=== PATIENT | female | born 1955 | race Caucasian/White ===

== ENCOUNTER → 2017-07-11 | Outpatient (CLI) | payer OTHER ==
--- NOTE | 2017-07-11 13:18 | CTL ---
EXAMINATION TYPE: CT Low Dose Lung DATE OF EXAM ORDERED: 07/11/2017 COMPARISON: None HISTORY: . Low Dose CT Lung Screening CT DLP: 65.[address] CTDI: 2.0 mGy IV CONTRAST USED: None. SCREENING VISIT: First visit COMPARISON: None. TECHNIQUE: Low dose computed tomography scan was performed through the chest at 1 millimeter thick se ctions and reconstructed images in the coronal plane at [address] DIAGNOSTIC QUALITY: Satisfactory FINDINGS: LUNG NODULES: Right lung: There is right apical soft tissue with surrounding strandy attenuation which is felt to r eflect parenchymal scar and measures 2.1 x 1.5 cm. There is a right upper lobe pleural-based nodulari ty as well as associated mild bronchiectasis and underlying emphysematous change. Calcified granuloma right upper lobe. Left lung: Left lower lobe calcified granuloma. No additional nodules seen. LUNGS: COPD: Severity: Mild Fibrosis: Severity: Minimal right apical Lymph nodes: None Other findings: None RIGHT PLEURAL SPACE: Effusion: None Calcification: None Thickening: None Pneumothorax: None LEFT PLEURAL SPACE: Effusion: None Calcification: None Thickening: None Pneumothorax: None HEART: Heart Size: Mildly enlarged Coronary calcification: Mild Pericardial effusion: None OTHER FINDINGS: Upper abdomen: No significant abnormality Bony thorax: Degenerative changes Supraclavicular region: No significant abnormalityOther: No significant abnormalityI IMPRESSION: Benign FOLLOW UP CT CHEST RECOMMENDATION: Follow-up study in 6 months. Comparison any prior outside studies would be of value. CT LUNG RAD: Benign category 3 LUNG RAD CATEGORY 3
== END | disposition home or self-care (01) ==
LOC: RADCTMAIN 11:37
PROVIDERS: ATTEND Family Medicine
DX: Z12.2 Encounter for screening for malignant neoplasm of respiratory organs (principal); Z87.891 Personal history of nicotine dependence

== ENCOUNTER → 2018-06-11 | Outpatient (CLI) | payer OTHER ==
--- NOTE | 2018-06-11 14:02 | ECHOS ---
STRESS ECHOCARDIOGRAM INDICATIONS: Shortness of breath. BASELINE HEART RATE: 74 BASELINE BLOOD PRESSURE: 149/63 MAXIMUM HEART RATE: 157 MAXIMUM BLOOD PRESSURE: 176/94 85% MPHR: 135 100% MPHR: 159 METS: 6.9 MAXIMUM STAGE REACHED: II TOTAL EXERCISE TIME: 6:01 CLINICAL INFORMATION: Baseline rhythm is sinus mechanism, rate is 74, normal axis and intervals, normal electrocardiogram. Baseline blood pressure 149/63 mmHg. Patient exercised on Tyree protocol for 6 minutes 1 second reaching peak rate 157 beats per minute which is equal to 98% maximum predicted heart rate. Peak blood pressure 176/94 mmHg. Test was terminated due to fatigue. There was no chest pain. Electrocardiograph monitoring revealed rare PVCs. There was no evidence of diagnostic ischemic ST deviation. FINDINGS: Baseline echocardiogram revealed normal function at peak exercise. There was normal wall motion augmentation with no hypokinesis or dyskinesis. CONCLUSION: 1. Average exercise tolerance with normal electrocardiographic response to exercise. 2. Normal stress echocardiogram with no evidence of stress-induced ischemia. MMODL / IJN: [id number] /
== END | disposition home or self-care (01) ==
LOC: RADNMMAIN 08:55
PROVIDERS: ATTEND Family Medicine
DX: R06.00 Dyspnea, unspecified (principal)
CPT/HCPCS: 93351

== ENCOUNTER → 2018-06-19 | Outpatient (CLI) | payer OTHER ==
--- NOTE | 2018-06-21 11:46 | MM ---
Reason for exam: screening (asymptomatic). Last mammogram was performed 8 years and 4 months ago. History: Saline implants in both breasts, 2007. Physical Findings: A clinical breast exam by your physician is recommended on an annual basis and results should be correlated with mammographic findings. MG 3D Screen Mammo Imp/Cad Bilateral CC, MLO, and ID view(s) were taken. Prior study comparison: February 14, 2010, mammogram, performed at [facility]. July 22, 2008, mammogram, performed at [facility]. The breast tissue is heterogeneously dense. This may lower the sensitivity of mammography. There is chronic nodularity in the right breast. Bilateral prothesis. No significant changes when compared with prior studies. ASSESSMENT: Benign, BI-RAD 2 RECOMMENDATION: Routine screening mammogram of both breasts in 1 year.
== END | disposition home or self-care (01) ==
LOC: RADMAMWWP 10:12
PROVIDERS: ATTEND Family Medicine
DX: Z12.31 Encounter for screening mammogram for malignant neoplasm of breast (principal)
CPT/HCPCS: 77063; 77067

== ENCOUNTER → 2019-07-10 | Outpatient (CLI) | payer OTHER | END | disposition home or self-care (01) | LOC: RADECHMAIN 11:20 | PROVIDERS: ATTEND Family Medicine | DX: Z53.9 Procedure and treatment not carried out, unspecified reason (principal) ==

== ENCOUNTER → 2021-12-09 | Outpatient (CLI) | payer OTHER ==
--- NOTE | 2021-12-09 11:16 | CT ---
EXAMINATION TYPE: CT chest w con DATE OF EXAM: 12/09/2021 COMPARISON: CT dated 07/11/2017 HISTORY: Lung mass CT DLP: 555 mGycm Automated exposure control for dose reduction was used. TECHNIQUE: Multiplanar CT scan of the chest is performed with IV Contrast, patient injected with 100 ml mL of Is ovue 300. FINDINGS: Interval stability of the previously seen right apical thick scar tissue, adjacent fibrotic changes, traction bronchiectasis and minimal groundglass opacity with mild paraseptal emphysema, unchanged sin ce 2017 CT scan. Stable 4 mm nodule along the anterior aspect of the right upper lobe adjacent to the oblique fissure. Other scattered smaller bilateral calcified and noncalcified nodules, all stable compared to the prev ious CT scan. Right upper/middle lobe and medial linear pulmonary atelectasis. Minimal paraseptal emp hysema is seen in the left lung apex. Unremarkable lungs otherwise. Patent central airways. The pleur al or pericardial effusion. Increased cardiac size, please correlate with echocardiographic results. The pulmonary trunk measures 3 cm. Bovine aortic arch. No pathologically enlarged lymph nodes in the chest. Bilateral breast pros thesis. Triangular peripheral hypodense area seen in segment 4A/8 of the liver measuring 2.8 x 3.1 cm , incompletely characterized and could represent focal area of fatty infiltration. Recommend correlat ion with ultrasound results. Stable bilateral adrenal nodules measuring up to 2.8 cm on the right side and 2.1 cm on the left side , likely representing adrenal adenomas. Chronic healed fractures of the posterior aspects of the left sixth, eighth and ninth ribs. Degenerative changes of the thoracic spine. Retrolisthesis of T11 over T12, likely degenerative. IMPRESSION: 1. Stable scarring and chronic changes in the right lung apex as described above. The other previousl y described pulmonary nodules are also stable. No new suspicious or progressive lung lesion. 2. Hypodense area at the anterior aspect of the liver as described above, incompletely characterized and could represent focal area of fat infiltration, for further ultrasound assessment. Other incident al findings as described above. It is noted that the last lung screening CT was done in 2017. Should the patient return to lung scree karen CT scan every 12 months?.
== END | disposition home or self-care (01) ==
LOC: RADCTMAIN 07:59
PROVIDERS: ATTEND Family Medicine
DX: R91.8 Other nonspecific abnormal finding of lung field (principal)
CPT/HCPCS: 71260; Q9967

== ENCOUNTER → 2022-01-12 | Outpatient (CLI) | payer OTHER ==
--- NOTE | 2022-01-13 09:39 | MM ---
Reason for exam: screening (asymptomatic). Last mammogram was performed 3 years and 7 months ago. History: Saline implants in both breasts, 2007. Physical Findings: A clinical breast exam by your physician is recommended on an annual basis and results should be correlated with mammographic findings. MG Screening Mammo Implant/CAD Bilateral CC, MLO, and ID view(s) were taken. Prior study comparison: June 19, 2018, bilateral MG 3d screen mammo imp/cad. The breast tissue is heterogeneously dense. This may lower the sensitivity of mammography. There is chronic nodularity in the right breast. Bilateral retropectoral saline implants. No significant changes when compared with prior studies. ASSESSMENT: Benign, BI-RAD 2 RECOMMENDATION: Routine screening mammogram of both breasts in 1 year.
== END | disposition home or self-care (01) ==
LOC: RADMAMWWP 08:49
PROVIDERS: ATTEND Family Medicine
DX: Z12.31 Encounter for screening mammogram for malignant neoplasm of breast (principal)
CPT/HCPCS: 77067

== ENCOUNTER → 2022-02-28 | Outpatient (CLI) | payer OTHER ==
--- NOTE | 2022-02-28 16:59 | BD ---
EXAMINATION TYPE: Axial Bone Density DATE OF EXAM: 02/28/2022 COMPARISON: NONE CLINICAL HISTORY: 66 years year old Female. ICD-10 CODE: M89.9 Disorder of bone Nuclear Medicine Study in the last 2 weeks: Barium Study in the last week: : Height: Weight: FRAX RISK QUESTIONS: Alcohol (3 or more units per day): NO Family History (Parent hip fracture): NO Glucocorticoids (More than 3mos): NO History of Fracture in Adulthood: YES Secondary Osteoporosis: 1. Type 1 Diabetes: NO 2. Hyperthyroidism: NO 3. Menopause before 45: NO 4. Malnutrition: NO 5. Chronic liver disease: NO Rheumatoid Arthritis: NO Current Tobacco Use: YES RISK FACTORS HISTORY OF: Hip Fracture (Right/Left): NO Spine Fracture: YES When: 2004 History of Wrist Fracture: NO Surgery to Spine/Hip(right/left)/Wrist (right/left): NO Family History of Osteoporosis: NO Active: YES Diet low in dairy products/other sources of calcium: YES Postmenopausal woman: YES Take estrogen and/or progesterone medications: NO Lost more than 2 inches in height since high school: NO Frequent falls: NO Poor Health: NO Hyperparathyroidism: NO Adrenal Insufficiency: NO MEDICATIONS: Prednisone or other steroids: NO Thyroid Medications: NO Osteoporosis Medications: NO Additional Medications: VITD, CALCIUM, MAGNESIUM, ZINC Additional History: EXAM MEASUREMENTS: Bone mineral density about the R hip (g/cm2): 0.876 Bone mineral density about the L hip (g/cm2): 0.851 T Score values are as follows: -----R Neck: -1.2 -----L Neck: -1.3 -----R Total: -0.8 -----L Total: -1.0 BASELINE STUDY FRAX%s: The graph provided illustrates a 14.7% chance for a major osteoporotic fx and a 2.5% chance f or the hips probability for fx in 10 years time. IMPRESSION: Osteopenia (T Score between -2.5 and -1). There is slightly increased risk of fracture and the patient may be considered for treatment. Re-Screen 2-5 years. NOTE: T-SCORE=SD OF THE YOUNG ADULT MEAN.
== END | disposition home or self-care (01) ==
LOC: RADBDWWP 09:54
PROVIDERS: ATTEND Family Medicine
DX: M85.89 Other specified disorders of bone density and structure, multiple sites (principal); Z78.0 Asymptomatic menopausal state
CPT/HCPCS: 77080

== ENCOUNTER → 2024-04-14 | Outpatient (CLI) | payer OTHER ==
--- NOTE | 2024-04-16 08:26 | MM ---
Reason for Exam: Screening (asymptomatic). Last mammogram was performed 2 year(s) and 4 month(s) ago. Patient History: Menarche at age 16. First Full-Term at age 18. Left ovary removed at age 48. Right ovary removed at age 48. Hysterectomy at age 48. Postmenopausal. 2008, Bilateral Implants. Risk Values: Marie 5 year model risk: 1.1%. NCI Lifetime model risk: 3.8%. Prior Study Comparison: 02/14/2010 Screening Mammogram, [facility]. 06/19/2018 Bilateral Screening Mammogram, [facility]. 01/12/2022 Bilateral Screening Mammogram, [facility]. Tissue Density: The breasts are heterogeneously dense, which may obscure small masses. Findings: Analyzed By CAD. There is no suspicious group of microcalcifications or new suspicious mass in either breast. Bilateral breast implant surgery. There is a well-circumscribed nodule in the upper outer margin of the right breast. Stable from multiple prior exams. Overall Assessment: Benign, BI-RAD 2 Management: Screening Mammogram of both breasts in 1 year. . Patient should continue monthly self-breast exams. A clinical breast exam by your physician is recommended on an annual basis. This exam should not preclude additional follow-up of suspicious palpable abnormalities. Note on Marie scores and lifetime risk: 1. A Marie score greater than 3% is considered moderate risk. If this is the case, consider specialist referral to assess eligibility for a risk reducing agent. 2. If overall lifetime risk for the development of breast cancer is 20% or higher, the patient may qualify for future screening with alternating mammogram and breast MRI. Electronically signed and approved by: Raghav Carr M.D. Radiologis
== END | disposition home or self-care (01) ==
LOC: RADMAMWWP 07:33
PROVIDERS: ATTEND Family Medicine
DX: Z12.31 Encounter for screening mammogram for malignant neoplasm of breast (principal); R92.8 Other abnormal and inconclusive findings on diagnostic imaging of breast; Z78.0 Asymptomatic menopausal state
CPT/HCPCS: 77063; 77067

== ENCOUNTER → 2024-04-14 | Outpatient (CLI) | payer OTHER ==
--- NOTE | 2024-04-14 12:28 | US ---
EXAMINATION TYPE: US abdomen complete DATE OF EXAM: 04/14/2024 COMPARISON: CT CLINICAL INDICATION: Female, 68 years old with history of R10.10 ABDOMINAL PAIN; Pain, abnormal CT TECHNIQUE: Multiple sonographic images of the abdomen are obtained. FINDINGS: EXAM MEASUREMENTS: Liver Length: 14.1 cm Gallbladder Wall: 0.3 cm CBD: 0.3 cm Spleen: 9.1 cm Right Kidney: 11.0 x 4.7 x 5.1 cm Left Kidney: 11.1 x 5.9 x 5.4 cm UNDERCOVER COP NOTES: Pancreas: wnl Liver: Hypoechoic area anterior/superior midline lobe near GB= 2.2 x 1.3 x 2.3 cm- difficult to shaneka acterize due to location ?same area seen on prior CT Gallbladder: wnl Evidence for sonographic Zimmerman's sign: No CBD: wnl Spleen: Difficult to visualize due to overlying bowel content Right Kidney: wnl Left Kidney: No evidence of hydro, difficult to visualize due to overlying bowel content Upper IVC: wnl Abd Aorta: wnl IMPRESSION: 1. Indeterminate area within the liver which should be further evaluated with MRI liver mass protoco l with IV contrast. There was an area which was wedge-shaped on CT imaging set 12/09/2021 which could represent focal fatty infiltration on that exam. 2. No evidence for acute process otherwise.
== END | disposition home or self-care (01) ==
LOC: RADUSWWP 07:37
PROVIDERS: ATTEND Family Medicine
DX: R10.10 Upper abdominal pain, unspecified (principal)
CPT/HCPCS: 76700

== ENCOUNTER → 2024-04-29 | Outpatient (CLI) | payer OTHER ==
--- NOTE | 2024-04-29 15:40 | NM ---
EXAMINATION TYPE: NM hepatobiliary w CCK DATE OF EXAM: 04/29/2024 COMPARISON: NONE CLINICAL INDICATION: Female, 68 years old with history of R10.10 UPPER ABDOMINAL PAIN, UNSPECIFIED; TECHNIQUE: After the intravenous administration of 3.26 mCi Tc 99m Mebrofenin hepatobiliary scintigra phy is performed. Immediate images post injection. FINDINGS: There is satisfactory initial accumulation of tracer by the liver. The gallbladder is visualized wit hin 5 minutes. The small bowel activity is noted within 5 minutes. At one hour CCK was administered , patient was injected with 1.5 mcg of Kinevac, and gallbladder ejection fraction is calculated at 69 %, in the normal range. Therefore there is no scintigraphic evidence of cystic or common bile duct obstruction to suggest acute cholecystitis or gallbladder dyskinesia. IMPRESSION: Exam is within normal limits.
== END | disposition home or self-care (01) ==
LOC: RADNMMAIN 12:44
PROVIDERS: ATTEND Family Medicine
DX: R10.10 Upper abdominal pain, unspecified (principal)
CPT/HCPCS: 78227; A9537; J2805

== ENCOUNTER → 2024-05-10 | Outpatient (CLI) | payer OTHER ==
--- NOTE | 2024-05-11 14:51 | MR ---
EXAMINATION TYPE: MR abdomen wo/w con DATE OF EXAM: 05/10/2024 8:35 AM CLINICAL INDICATION:Female, 68 years old with history of D37.6 HEPATIC NEOPLASM UNCERTAIN BEHAVIOR; P HH, Abdomen pain, Abnormal CT chest/US COMPARISON: Ultrasound 04/14/2024, CT 12/09/2021 TECHNIQUE: Multiplanar multi-sequence imaging was performed without contrast. Post contrast imaging was performed. Post IV contrast subtraction images were also submitted for review. IV Contrast: 7 cc Gadavist FINDINGS: LOWER CHEST: Bilateral breast implants appear intact. ABDOMEN Liver: No evidence for hepatic steatosis or cirrhosis. High T2 cystic area with thin septation measur ing 21 x 19 mm which does not demonstrate postcontrast enhancement. Gallbladder and Bile ducts: No evidence for ductal dilation, or biliary stricture or evidence of chol edocholithiasis. The gallbladder is within normal limits. Pancreas: No ductal dilation. No evidence for solid mass. Spleen: Normal for size. Adrenal glands: Right adrenal nodule which demonstrates loss of signal on chemical shift out of phase imaging compatible with adrenal adenoma measuring up to 17 mm. Kidneys: No evidence for obstructive uropathy. No suspicious renal masses. Stomach and Bowel: No evidence for bowel wall thickening or evidence for obstruction. Retroperitoneum/Peritoneum: No evidence of pneumoperitoneum or free fluid. Vasculature: No aortic aneurysm. Musculoskeletal: The osseous structures appear intact. Lymph Nodes: No gross evidence for lymphadenopathy. Abdominal wall: Unremarkable. IMPRESSION: 1. Lesion of concern within the liver is thought to relate to adjacent simple cysts versus minimally complicated cyst with thin septation. No suspicious enhancement within the liver. 2. No evidence for acute abdominal process. 3. Right adrenal adenoma.
== END | disposition home or self-care (01) ==
LOC: RADMRIMAIN 07:37
PROVIDERS: ATTEND Family Medicine
DX: D37.6 Neoplasm of uncertain behavior of liver, gallbladder and bile ducts (principal); D35.01 Benign neoplasm of right adrenal gland
CPT/HCPCS: 74183; A9585

== ENCOUNTER → 2024-05-22 | Outpatient (CLI) | payer OTHER ==
--- NOTE | 2024-06-12 16:32 | CTL ---
Site ID [facility] Patient Odette Farrar D ID [id number] Age/Gender: 68Y, F Order # N/A Procedure CT LOW DOSE LUNG CANCER SCREENING Date 05/22/2024 11:33:00 AM EXAMINATION TYPE: CT Low Dose Lung DATE OF EXAM ORDERED: 06/05/2024 HISTORY: Personal history of nicotine dependence, 45 pack-year history. Lung cancer screening CT DLP: 84.[address] CTDI: 2.40 mGy Automated exposure control for dose reduction was used. SCREENING VISIT: Second screening visit COMPARISON: CT chest 12/09/2021, low-dose lung cancer screening 07/11/2017 TECHNIQUE: Low dose computed tomography scan was performed through the chest at 1 mm thick sections a nd reconstructed images in multiple planes at 1 mm and [address] DIAGNOSTIC QUALITY: Satisfactory FINDINGS: Nodules: Stable peripheral left upper lobe 3.0 cm pulmonary nodule (series 4, image 25). Stable right lower lo be 3.0 cm pulmonary nodule (series 4, image 120). No new or enlarging pulmonary nodules. Stable bilateral lower lobe peripheral calcified granulomas. LUNGS: COPD: Severity: Mild Fibrosis: Severity: None Lymph nodes: None Other findings: Stable right apical pleural-parenchymal scarring. RIGHT PLEURAL SPACE: Effusion: None Calcification: None Thickening: None Pneumothorax: None LEFT PLEURAL SPACE: Effusion: None Calcification: None Thickening: None Pneumothorax: None HEART: Heart Size: Normal Coronary Calcification: None Pericardial Effusion: None OTHER FINDINGS: Upper abdomen: Similar focal fatty infiltration adjacent to the falciform ligament. Stable bilateral adrenal gland lipid rich adenomas. Bony thorax: Multilevel moderate degenerative disc disease. Supraclavicular region: Similar focal fatty infiltration adjacent to the falciform ligament. Other: Bilateral breast prosthesis. IMPRESSION: Few stable pulmonary nodules measuring up to 3 mm. No new or enlarging pulmonary nodules. CT LUNG RAD AND CT CHEST RECOMMENDATION: Lung-Rad 2 Benign Appearance or Behavior: Continue annual sc reening with LDCT in 12 months. S Modifier (other clinically significant findings): None
== END | disposition home or self-care (01) ==
LOC: RADCTMAIN 11:21
PROVIDERS: ATTEND Family Medicine
DX: Z12.2 Encounter for screening for malignant neoplasm of respiratory organs (principal); F17.210 Nicotine dependence, cigarettes, uncomplicated; R91.8 Other nonspecific abnormal finding of lung field
CPT/HCPCS: 71271

== ENCOUNTER 2024-06-06 09:00 | Day surgery (SDC) | payer OTHER ==
[~2024-06-06 09:00] MED LIST: LACTATED RINGERS 1,000 ML BAG ONE
[2024-06-06] MEDS ORDERED: PROPOFOL 10 MG/ML 20 ML VIAL IV ONE (09:09)
[2024-06-06] MEDS ORDERED: GLYCOPYRROLATE 0.2 MG/ML 2 ML VIAL ONE (09:09)
--- NOTE | 2024-07-03 11:01 | PCN ---
PROCEDURE NOTE REQUESTING PHYSICIAN: Dr. Yancy Salazar. BRIEF HISTORY: The patient is a 68-year-old pleasant white female scheduled for elective colonoscopy as part of screening for colorectal neoplasia. PROCEDURE PERFORMED: Colonoscopy. PREOPERATIVE DIAGNOSIS: Screening for colon cancer. ANESTHESIA: IV sedation per Anesthesia. DESCRIPTION OF PROCEDURE: After informed consent was obtained from the patient, she was brought in to the endoscopy unit. After informed consent was obtained from the patient, she was brought in to the endoscopy unit. IV conscious sedation was administered by Anesthesia under continuous monitoring. Initial digital rectal examination was normal. The Olympus CF- 190 video colonoscope was then inserted in the rectum, gradually advanced to the cecum. Careful examination was performed and the scope was gradually being withdrawn. The ileocecal valve and the appendiceal orifice were visualized and appeared normal. The prep was excellent. The mucosa of the cecum, ascending colon, transverse colon, descending colon, sigmoid colon, and rectum appeared normal. In the rectum, retroflexion was performed. No lesions were noted. The patient tolerated the procedure well. IMPRESSION: Normal-appearing colon from rectum to cecum with no evidence of colitis or colorectal neoplasia. RECOMMENDATIONS: Findings of this examination were discussed with the patient as well as the family. She was advised to have a repeat screening colonoscopy in 10 years. MMODL / IJN: [id number] /
== END 2024-06-06 10:05 ==
LOC: ORWHC2ENDO 09:00
PROVIDERS: ATTEND Internal Medicine Gastroenterology
DX: Z12.11 Encounter for screening for malignant neoplasm of colon
CPT/HCPCS: 45378

== ENCOUNTER → 2024-12-31 | Outpatient (CLI) | payer OTHER ==
--- NOTE | 2025-01-01 09:01 | CA ---
Transthoracic Echo Report Name: Odette Farrar Age: 69 Gender: F : 1955 Exam Date: 12/31/2024 13:57 Exam Location: [facility] Ht (in): 66 Wt (lb): 165 Ordering Physician: Yancy Salazar MD Attending/Referring Phys: Lock Operator Estelita Rios RDCS Procedure CPT: Indications: R06.02 SOB Cardiac Hx: Technical Quality: Good Contrast 1: Total Dose (mL): Contrast 2: Total Dose (mL): MEASUREMENTS (Male / Female) Normal Values 2D ECHO LV Diastolic Diameter PLAX 5.1 cm 4.2 - 5.9 / 3.9 - 5.3 cm LV Systolic Diameter PLAX 3.6 cm IVS Diastolic Thickness 1.0 cm 0.6 - 1.0 / 0.6 - 0.9 cm LVPW Diastolic Thickness 1.2 cm 0.6 - 1.0 / 0.6 - 0.9 cm LV Relative Wall Thickness 0.4 LVOT Diameter 2.1 cm LV Diastolic Volume MOD BP 102.4 cm??? 67 - 155 / 56 - 104 cm??? LV Systolic Volume MOD BP 40.9 cm??? 22 - 58 / 19 - 49 cm??? LV Ejection Fraction MOD BP 60.1 % >= 55 % LV Cardiac Index MOD BP 2223.0 cm???/min???m??? LV Diastolic Volume MOD 4C 102.4 cm??? LV Systolic Volume MOD 4C 38.0 cm??? LV Ejection Fraction MOD 4C 62.9 % LV Cardiac Index MOD 4C 2326.9 cm???/min???m??? LV Diastolic Length 4C 7.2 cm LV Systolic Length 4C 6.2 cm LV Diastolic Volume MOD 2C 99.4 cm??? LV Systolic Volume MOD 2C 38.6 cm??? LV Ejection Fraction MOD 2C 61.1 % LV Cardiac Index MOD 2C 2194.8 cm???/min???m??? LV Diastolic Length 2C 7.4 cm LV Systolic Length 2C 5.4 cm LA Volume 70.9 cm??? 18 - 58 / 22 - 52 cm??? LA Volume Index 37.7 cm???/m??? 16 - 28 cm???/m??? Ascending Aorta Diameter 3.4 cm DOPPLER AV Peak Velocity 155.7 cm/s AV Peak Gradient 9.7 mmHg AV Mean Velocity 104.4 cm/s AV Mean Gradient 5.0 mmHg AV Velocity Time Integral 36.6 cm LVOT Peak Velocity 102.5 cm/s LVOT Peak Gradient 4.2 mmHg LVOT Velocity Time Integral 23.1 cm LVOT Stroke Volume 80.7 cm??? LVOT Stroke Volume Index 43.8 ml/m??? LVOT Cardiac Index 2916.6 cm???/min???m??? AV Area Cont Eq vti 2.2 cm??? AV Area Cont Eq pk 2.3 cm??? MV Area PHT 4.0 cm??? Mitral E Point Velocity 58.6 cm/s Mitral A Point Velocity 85.8 cm/s Mitral E to A Ratio 0.7 MV Deceleration Time 191.9 ms PV Peak Velocity 91.3 cm/s PV Peak Gradient 3.3 mmHg FINDINGS Left Ventricle Left ventricular ejection fraction is estimated at 60-65 %. Mildly increased posterior wall thickness. Left ventricular cavity size normal. Left ventricular wall thickness normal. No obvious regional wall motion abnormalities. Right Ventricle Normal right ventricular size and function. Unable to estimate the right ventricular systolic pressure. Right Atrium Normal right atrial size. Left Atrium Moderately increased left atrial volume. Mildly increased left atrial area. Mitral Valve Structurally normal mitral valve. No evidence for mitral valve prolapse. No mitral stenosis. Trace mitral regurgitation. Aortic Valve Trileaflet aortic valve. No aortic valve stenosis or regurgitation. Tricuspid Valve Structurally normal tricuspid valve. No tricuspid stenosis. Trace tricuspid regurgitation. Pulmonic Valve Structurally normal pulmonic valve. No pulmonic stenosis. Trace pulmonic regurgitation. Pericardium No pericardial effusion. Aorta Normal size aortic root and proximal ascending aorta. CONCLUSIONS Normal LV size and systolic function. Mildly enlarged left atrium. Minimal mitral and tricuspid regurgitation. No pericardial effusion. Previewed by: Dr. Sinai Gallegos MD (Electronically Signed) Final Date: 01 January 2025 09:00
== END | disposition home or self-care (01) ==
LOC: RADECHMAIN 13:53
PROVIDERS: ATTEND Family Medicine
DX: I08.1 Rheumatic disorders of both mitral and tricuspid valves (principal)
CPT/HCPCS: 93306

== ENCOUNTER → 2025-05-13 | Outpatient (CLI) | payer OTHER ==
--- NOTE | 2025-05-13 10:55 | CTL ---
EXAMINATION TYPE: CT Low Dose Lung DATE OF EXAM: 05/13/2025 10:38 AM COMPARISON: 05/22/2024 CLINICAL INDICATION: Female, 69 years old with history of Z12.2 LUNG CA SCR Z87.891 FORMER SMOKER, HI STORY OF SMOKER, History of tobacco use. TECHNIQUE: Low Dose CT Lung Screening, Low dose computed tomography scan was performed through the est at 1 millimeter thick sections and reconstructed images in the coronal plane at 1 mm thick sectio ns. IV CONTRAST USED: None. SCREENING VISIT: [address] DLP: 94.4 mGycm, Automated exposure control for dose reduction was used. CT CTDI: 2.8 mGy FINDINGS: CT DIAGNOSTIC QUALITY: Satisfactory LUNG NODULES: Stable biapical scarring right greater than left. Stable scattered sub-5 mm pulmonary n odularity. Stable scattered pulmonary granulomas. LUNGS: COPD: Severity: Mild Fibrosis: Severity:None Lymph nodes: None Other findings: None RIGHT PLEURAL SPACE: Effusion: None Calcification: None Thickening: None Pneumothorax: None LEFT PLEURAL SPACE: Effusion: None Calcification: None Thickening: None Pneumothorax: None HEART: * Size within normal limits. * No significant coronary artery calcifications. OTHER FINDINGS: Upper abdomen: No significant abnormality Bony thorax: Degenerative changes Supraclavicular region: No significant abnormalityOther: No significant abnormalityI IMPRESSION: 1. No clinically significant pulmonary nodules. 2. Mild emphysema. CT LUNG RAD AND CT CHEST RECOMMENDATION: Lung-Rad 2 Benign Appearance or Behavior: Continue annual sc reening with LDCT in 12 months. S Modifier (other clinically significant findings): [facility], , 05/13/2025 10:52 AM
--- NOTE | 2025-05-13 16:23 | MM ---
Reason for Exam: Screening (asymptomatic). Last screening mammogram was performed 12 month(s) ago. Patient History: Menarche at age 16. First Full-Term at age 18. Left ovary removed at age 48. Right ovary removed at age 48. Hysterectomy at age 48. Postmenopausal. 2008, Bilateral Implants. Risk Values: Marie 5 year model risk: 1.1%. NCI Lifetime model risk: 3.7%. Prior Study Comparison: 06/19/2018 Bilateral Screening Mammogram, [facility]. 01/12/2022 Bilateral Screening Mammogram, [facility]. 04/14/2024 Bilateral MG 3D screen mammo imp/cad., [facility]. Tissue Density: There are scattered areas of fibroglandular density. Findings: Analyzed By CAD. Bilateral retropectoral saline implants. Chronic nodularity on the right. There is no suspicious group of microcalcifications or new suspicious mass in either breast. Overall Assessment: Benign, BI-RAD 2 Management: Screening Mammogram of both breasts in 1 year. Patient should continue monthly self-breast exams. A clinical breast exam by your physician is recommended on an annual basis. This exam should not preclude additional follow-up of suspicious palpable abnormalities. Note on Marie scores and lifetime risk: 1. A Marie score greater than 3% is considered moderate risk. If this is the case, consider specialist referral to assess eligibility for a risk reducing agent. 2. If overall lifetime risk for the development of breast cancer is 20% or higher, the patient may qualify for future screening with alternating mammogram and breast MRI. [facility], , 05/13/2025 4:20 PM. Electronically signed and approved by: Sharan Anderson M.D. Radiologist
== END | disposition home or self-care (01) ==
LOC: RADCTMAIN 10:18
PROVIDERS: ATTEND Family Medicine
DX: Z12.31 Encounter for screening mammogram for malignant neoplasm of breast (principal); Z12.2 Encounter for screening for malignant neoplasm of respiratory organs; J43.9 Emphysema, unspecified; Z87.891 Personal history of nicotine dependence; R92.323 Mammographic fibroglandular density, bilateral breasts; Z98.82 Breast implant status; Z78.0 Asymptomatic menopausal state
CPT/HCPCS: 71271; 77063; 77067